=== PATIENT | male | born 1950 | race Caucasian/White ===

== ENCOUNTER 2024-11-01 16:51 | Emergency (ER) | payer BC, SELFPAY ==
[2024-11-01 16:56] VITALS: BP 143/86
[2024-11-01 17:29] LABS: Hematocrit 43.6 % (39.0-52.0); Hemoglobin 15.1 g/dL (13.0-18.0); Mean Corp Hgb Conc. 34.6 g/dL (33.0-37.0); Mean Corpuscular Volume 95.2 fL (80.0-94.0); Nucleated Red Blood Cells % 0 % (-); Platelet Count 172 10^3/uL (130-400); Red Cell Dist. Width 15.8 % (11.5-14.5)
[2024-11-01 17:51] LABS: Troponin I < 0.012 ng/ml
[2024-11-01 17:56] LABS: ALT (SGPT) 96 U/L (0-50); AST (SGOT) 186 U/L (17-59); Albumin 4.5 g/dl (3.5-5.0); Alkaline Phosphatase 237 U/L (38-126); Blood Urea Nitrogen 17 mg/dl (9-20); Calcium 9.0 mg/dl (8.4-10.2); Carbon Dioxide 18 mmol/L (22-30); Chloride 105 mmol/L (98-107); Glucose 124 mg/dl (70-99); Potassium 3.8 mmol/L (3.5-5.1); Sodium 139 mmol/L (135-145); Total Protein 8.1 g/dl (6.3-8.2); eGFR > 60.00
[2024-11-01 18:14] VITALS: BMI 39.3
[2024-11-01 18:18] VITALS: BP 132/85
--- NOTE | 2024-11-01 18:48 | ED.GENMED ---
History of Present Illness
General
Chief Complaint: Breathing Problem
Source: patient
Exam Limitations: none
Time Seen by Provider: 11/01/24 18:25
Nursing documentation reviewed up to this point in time: agreed with
History of Present Illness
History of Present Illness:
74-year-old male presents Emergency Department due to coughing and being unable to clear his throat. He had a similar episode in the past that was angioedema.
Past History
Past History
ED Past Medical History: HTN, Hypercholesterolemia and Other (Angioedema)
ED Past Surgical History: None
Social History
Personal:
Living: with family
Review of Systems
Review of Systems
Allergies reviewed?: Yes
All Other Systems: Not applicable
Constitutional: Reports no symptoms
EENT: Reports no symptoms
Respiratory: Reports trouble breathing
Cardiac: Reports no symptoms
ABD/GI: Reports no symptoms
: Reports no symptoms
Musculoskeletal: Reports no symptoms
Skin: Reports no symptoms
Neurological: Reports no symptoms
Endocrine: Reports no symptoms
Hematologic/Lymphatic: Reports no symptoms
Psychiatric: Reports no symptoms
Phy Exam
Physical Exam
Physical Exam:
Physical Exam
General: no apparent distress, not acutely ill
Neck: supple. no meningeal signs. normal posterior pharynx
Heart: s1/s2 regular rate and rhythm, no murmur. equal radial
pulses.
HEENT: Pupils equal round reactive to light, EOMI
Lungs: no acute respiratory distress. clear bilaterally, cough
Abdomen: normal bowel sounds. not tender. no CVAT
Neuro: alert and oriented. no focal neurological deficits cranial nerves II through XII intact
Skin: no rash
Psychiatric: well kept. interactive and cooperative
Extremities: no edema. no calf tenderness. negative homans. good distal pulses
Scores
Heart Failure Risk
Heart Failure Risk Score: Not Applicable
Course
Orders/Labs/Results
Orders:
Orders
11/01/24 17:01
Electrocardiogram (*1) Urgent
Reason for Study: Shortness of Breath
11/01/24 17:02
Electrocardiogram (*1) Urgent
Reason for Study: Shortness of Breath
EKG- Treatment ONCE
11/01/24 17:19
Complete Blood Count/With Diff Urgent
Comprehensive Metabolic Panel Urgent
Pro-BNP [NT-proBNP] Urgent
Troponin I Urgent
11/01/24 18:22
CXR2 [CR Chest - 2 Views ] Urgent
Comment:
Reason For Exam: cough short of breath
11/01/24 18:46
Diphenhydramine [Benadryl] 25 mg IV NOW STA
Famotidine [Pepcid] 20 mg IV NOW STA
Ipratropium/Albuterol Sulfate [Duoneb] 3 ml INH R NOW STA
Pantoprazole [Protonix IV] 40 mg IV NOW STA
11/01/24 19:06
COVID-19 Antigen Urgent
Source: Nasal Swab
D-Dimer Urgent
PTT Urgent
Prothrombin Time Urgent
11/01/24 20:33
Lorazepam [Ativan] 1 mg IV NOW STA
11/01/24 20:40
Ipratropium/Albuterol Sulfate [Duoneb] 3 ml .ROUTE .STK-MED ONE
11/01/24 20:43
Ipratropium/Albuterol Sulfate [Duoneb] 3 ml INH R NOW ONE
Abnormal Lab Results
11/01/24 11/01/24
17:19 19:06
RBC 4.58 L 10^6/uL
(4.70-6.10)
MCV 95.2 H fL
(80.0-94.0)
MCH 33.0 H pg
(27.0-31.0)
RDW 15.8 H %
(11.5-14.5)
Absolute Lymphs (auto) 0.8 L 10^3/uL
(1.2-3.4)
Absolute Monos (auto) 0.8 H 10^3/uL
(0.1-0.6)
Lymphocytes % 14.5 L %
(20.5-51.1)
Monocytes % 13.1 H %
(1.7-9.3)
D-Dimer 0.68 H ug/mlFEU
(0.00-0.50)
Carbon Dioxide 18 L mmol/L
(22-30)
Glucose 124 H mg/dl
(70-99)
Total Bilirubin 2.1 H mg/dl
(0.2-1.3)
AST 186 H U/L
(17-59)
ALT 96 H U/L
(0-50)
Alkaline Phosphatase 237 H U/L
(38-126)
11/01/24 17:19
11/01/24 17:19
Vital Signs
Initial and Last Documented VS:
Initial Vital Signs
Temp Pulse Resp BP Pulse Ox
98.2 F 117 18 143/86 94
11/01/24 16:56 11/01/24 16:56 11/01/24 16:56 11/01/24 16:56 11/01/24 16:56
Last Documented Vital Signs
Temp Pulse Resp BP Pulse Ox
99.3 F 105 21 138/83 94
11/01/24 18:18 11/01/24 22:45 11/01/24 22:45 11/01/24 22:00 11/01/24 22:45
MDM/Problems Addressed
Differential Diagnosis Includes:
Alcohol withdraw, bronchitis, angioedema, pneumonia, CHF
MDM/Problems Addressed:
74-year-old male with cough, possibly related to reflux versus bronchitis. Vital signs stable. Improved after albuterol and Ativan. Possible degree of alcohol withdrawal. Patient does not want stay in hospital or go to rehab. Discharge home.
Chronic conditions affecting care: HTN
Acute Exacerbation and/or Progression of Chronic Illness: HTN
*Radiology
Radiology exam reviewed: radiology read reviewed (Chest x-ray no acute findings)
*Pulse Oximetry
SaO2: 95
Oxygen Mode of Delivery: Room air
Patient hypoxic: no
*EKG
Interpreted by ED Provider?: Yes
EKG Intrepretation Date: 11/01/24
EKG Intrepretation Time: 17:12
Interpretation: abnormal
Comparison EKG: changes noted
Heart Rate: 105
Rate: tachycardiac
Rhythm: sinus arrhythmia
[place]: normal axis
Interval: normal interval
QRS Pattern: normal QRS
Ischemia: no ischemia
*Curriculum Facilitator Interpretation
Rate: normal
Interpretation: normal
Heart Rate: 94
Rhythm: sinus
*Critical Care Note
Total Time (30-74mins, 75-104mins- exclusive of procedures): Not Applicable
Data Reviewed
Review of Other/Old Records Reveals: Labs (prior cr 0.9)
Source: records
Patient Management
Social determinants of health affecting care: Living situation and Strong social support
Escalation/DeEscalation of care consider admission/obs:
admit not indicated
ED Attending Note
-
Portions of this chart may have been created with voice recognition software.� Occasional wrong word or��sound alike� substitutions may have occurred due to the inherent limitations of voice recognition software.
Discharge Plan
Departure
Patient Disposition: Home (Routine Discharge)
Date of Disposition: 11/01/24
Time of Disposition: 22:47
Patient with high blood pressure during this ER visit?: Yes
Condition: Good
Discharge Problem:
Acute bronchitis
Instructions: Acute Bronchitis, Adult (DC), BLOOD PRESSURE
Prescriptions:
New
albuterol sulfate [Ventolin HFA] 90 mcg/actuation HFA aerosol inhaler
2 puff inhalation Q6H PRN (Reason: shortness of breath or wheezing) Qty: 8.5 0RF
No Action
amlodipine-benazepril 1 EACH capsule
1 ea PO DAILY
rosuvastatin [Crestor] 10 MG tablet
10 mg PO DAILY
prednisone 10 MG tablet
10 mg PO .TAPER Qty: 30 0RF
Rx Instructions:
Take [id number], 82ewd8zwln, 81xgw5nbmw, 05iqg5zmkw.
amoxicillin-pot clavulanate 1 TABLET tablet
1 tab PO Q12 Qty: 14 0RF
Referrals:
Alvaro Chang DO [Family Provider, Internal Medicine] - Call in 1-3 days for appt
Activity Restrictions/Additional Instructions:
Return for any concerns.
Interventions
Interventions:
*Risk Screen - Suicide Last Done: 11/01/24 16:56
*General Assessment Last Done: 11/01/24 16:56
*Neglect/Abuse Screening Last Done: 11/01/24 16:56
*ED- Fall Risk Assessment Last Done: 11/01/24 18:15
*ED COVID-19 Vaccine History Last Done: 11/01/24 18:15
ED- Cardiac Assessment Last Done: 11/01/24 18:25
ED- Pulmonary Assessment Last Done: 11/01/24 18:25
Discharge Date and Time
Print Language: THAI
[2024-11-01] MEDS: DUONEB 3 ML INH ×2 (19:13→20:43)
[2024-11-01] MEDS: BENADRYL 25 MG IV (19:15)
[2024-11-01] MEDS: PEPCID 20 MG IV (19:19)
[2024-11-01 19:21] VITALS: BP 149/84
[2024-11-01 19:23] LABS: INR 1.06; PT 14.1 Sec (11.4-14.6)
[2024-11-01 19:24] LABS: APTT 27.0 Sec (23.4-35.0)
[2024-11-01 19:26] LABS: D-Dimer 0.68 ug/mlFEU (0.00-0.50)
[2024-11-01] MEDS: PROTONIX IV 40 MG IV (19:27)
[2024-11-01 19:28] LABS: COVID-19 Antigen Negative (Negative)
[2024-11-01 20:00] VITALS: BP 131/66
[2024-11-01] MEDS: ATIVAN 1 MG IV (20:44)
[2024-11-01 21:00] VITALS: BP 120/92
[2024-11-01 22:00] VITALS: BP 138/83
== END 2024-11-01 23:10 | disposition home or self-care (01) ==
LOC: EMR 16:51
PROVIDERS: Student in an Organized Health Care Education/Training Program; EMERGENCY PHYSICIAN Emergency Medicine; FAMILY PHYSICIAN Internal Medicine
DX: J20.9 Acute bronchitis, unspecified (principal); Z11.52 Encounter for screening for COVID-19; I10 Essential (primary) hypertension; E78.00 Pure hypercholesterolemia, unspecified; K21.9 Gastro-esophageal reflux disease without esophagitis; K22.70 Barrett's esophagus without dysplasia; Z88.8 Allergy status to other drugs, medicaments and biological substances
CPT/HCPCS: 99285; 96374; 96375 ×3; 94640 ×2; 71046; 80053; 83880; 84484; 85025; 85379; 85610; 85730; 87811; 93005

== ENCOUNTER 2025-03-21 20:30 | Emergency (ER) | payer BC, SELFPAY ==
[2025-03-21 20:31] VITALS: BP 143/96
[2025-03-21 20:54] VITALS: BP 137/83
[2025-03-21 21:00] VITALS: BP 143/74
[2025-03-21] MEDS: DUONEB 3 ML INH (21:45)
--- NOTE | 2025-03-21 21:54 | ED.GENMED ---
History of Present Illness
General
Chief Complaint: Breathing Problem
Source: patient and spouse
Exam Limitations: none
Time Seen by Provider: 03/21/25 21:23
Nursing documentation reviewed up to this point in time: agreed with
History of Present Illness
History of Present Illness:
75-year-old male hypertension alcoholism drinks every day comes in states he feels some fullness in his throat and cough that he gets either from alcohol and/or angioedema previously on an SHIRLEY inhibitor not currently on 1, also states he like to get
into alcohol rehab, had 3 drinks tonight, states he thinks he needs a neb to help him states he does not get shaky if he wants does not drink for a few days though his states there is never a few days that he does not drink, he can drink a
bottle of vodka a day
Past History
Past History
ED Past Medical History: HTN, Hypercholesterolemia and Other (Angioedema)
ED Past Surgical History: None
Social History
Personal:
Living: with family
Phy Exam
Physical Exam
Physical Exam:
Physical Exam
General: Intoxicated male no acute
Neck: Posterior pharynx is clear clear voice no lip swelling no tongue
Heart: s1/s2 regular rate and rhythm, no murmur. equal radial pulses.
Lungs: No wheeze
Abdomen: Not tender
Neuro: alert and oriented. no focal neurological deficits no tremor
Skin: no rash
Psychiatric: well kept. interactive and cooperative
Extremities: no edema.
Scores
Heart Failure Risk
Heart Failure Risk Score: Not Applicable
Course
Orders/Labs/Results
Orders:
Orders
03/21/25 21:13
Electrocardiogram (*1) Urgent
Reason for Study: Shortness of Breath
EKG- Treatment ONCE
03/21/25 21:35
Warm Handoff Consult ONCE
Patient agreeable to Warm Hand off: Yes
Ipratropium/Albuterol Sulfate [Duoneb] 3 ml INH R NOW STA
03/21/25 21:43
Alcohol Urgent
Complete Blood Count/With Diff Urgent
Comprehensive Metabolic Panel Urgent
03/21/25 22:53
Benzocaine/Menthol [Anesthetic Lozenge] 1 lozenge PO NOW STA
Benzonatate [Tessalon Perles] 200 mg PO NOW STA
Abnormal Lab Results
03/21/25
21:43
RBC 4.40 L 10^6/uL
(4.70-6.10)
MCV 96.4 H fL
(80.0-94.0)
MCH 32.5 H pg
(27.0-31.0)
RDW 15.4 H %
(11.5-14.5)
Absolute Monos (auto) 0.8 H 10^3/uL
(0.1-0.6)
Monocytes % 14.4 H %
(1.7-9.3)
Glucose 111 H mg/dl
(70-99)
AST 103 H U/L
(17-59)
ALT 61 H U/L
(0-50)
Alkaline Phosphatase 129 H U/L
(38-126)
03/21/25 21:43
03/21/25 21:43
Vital Signs
Initial and Last Documented VS:
Initial Vital Signs
Temp Pulse Resp BP Pulse Ox
97.7 F 91 20 143/96 96
03/21/25 20:31 03/21/25 20:31 03/21/25 20:31 03/21/25 20:31 03/21/25 20:31
Last Documented Vital Signs
Temp Pulse Resp BP Pulse Ox
97.7 F 91 20 143/96 96
03/21/25 20:31 03/21/25 20:31 03/21/25 20:31 03/21/25 20:31 03/21/25 21:56
MDM/Problems Addressed
Differential Diagnosis Includes:
Alcoholism, sleep apnea, no signs of angioedema
MDM/Problems Addressed:
Alcoholism, recurrent chronic cough
Chronic conditions affecting care: HTN and Other (Alcoholism)
Acute Exacerbation and/or Progression of Chronic Illness: HTN and Other (Alcoholism)
*Pulse Oximetry
SaO2: 96
Oxygen Mode of Delivery: Room air
Patient hypoxic: no
*EKG
Interpreted by ED Provider?: Yes
Interpretation: normal
Comparison EKG: no comparison EKG present
Heart Rate: 72
Rate: normal
Rhythm: sinus
Ischemia: non-specific ST changes
*Seed Core Operator Interpretation
Rate: normal
Interpretation: normal
Heart Rate: 72
Rhythm: sinus
*Critical Care Note
Total Time (30-74mins, 75-104mins- exclusive of procedures): Not Applicable
Update Note
Update Note:
Update patient states he would like to go to alcohol rehab, reviewed with warm handoff, fax clinical no signs of acute withdrawal at this time although he did just have some drinks a few hours ago, do not believe this is angioedema, or pneumonia
10:45 PM update patient appears well has a cough, states he has reflux sees Dr. Naylor, he is on a PPI this is main issue now he is intoxicated, I did review my conversation with warm handoff, patient is okay following up as an outpatient he would
like to get his cough better will try Tessalon and Cepacol tells me he drinks because it is the only thing that makes him not cough
ED Attending Note
-
Portions of this chart may have been created with voice recognition software.� Occasional wrong word or��sound alike� substitutions may have occurred due to the inherent limitations of voice recognition software.
Discharge Plan
Departure
Patient Disposition: Home (Routine Discharge)
Date of Disposition: 03/21/25
Time of Disposition: 23:23
Patient with high blood pressure during this ER visit?: No
Condition: Good
Discharge Problem:
Alcoh dep NEC/NOS, unspec
Instructions: Cough in adults, Alcohol use disorder - ED (DC)
Prescriptions:
New
Cepacol Sore Throat (rajesh-men) 15-2.6 mg lozenge
1 kristina mucous membrane Q2H PRN (Reason: sore throat) Qty: 16 2RF
benzonatate 200 mg capsule
200 mg PO TID PRN (Reason: Cough) Qty: 30 2RF
No Action
amlodipine-benazepril 1 EACH capsule
1 ea PO DAILY
rosuvastatin [Crestor] 10 MG tablet
10 mg PO DAILY
prednisone 10 MG tablet
10 mg PO .TAPER Qty: 30 0RF
Rx Instructions:
Take 69hgs4afkp, 56epe4bbgd, 36hyl7vojd, 84lkx0zsba.
amoxicillin-pot clavulanate 1 TABLET tablet
1 tab PO Q12 Qty: 14 0RF
albuterol sulfate [Ventolin HFA] 90 mcg/actuation HFA aerosol inhaler
2 puff inhalation Q6H PRN (Reason: shortness of breath or wheezing) Qty: 8.5 0RF
Referrals:
Alvaro Chang I., DO [Family Provider, Internal Medicine]
Activity Restrictions/Additional Instructions:
Expect a call from [facility] to assist you in getting into rehab for alcoholism
Interventions
Interventions:
*Risk Screen - Suicide Last Done: 03/21/25 20:31
*General Assessment Last Done: 03/21/25 20:59
*Neglect/Abuse Screening Last Done: 03/21/25 20:31
ED- Cardiac Assessment Last Done: 03/21/25 20:59
ED- Pulmonary Assessment Last Done: 03/21/25 20:59
Discharge Date and Time
Print Language: TELUGU
[2025-03-21 22:00] VITALS: BP 128/75
[2025-03-21 22:10] LABS: Hematocrit 42.4 % (39.0-52.0); Hemoglobin 14.3 g/dL (13.0-18.0); Mean Corp Hgb Conc. 33.7 g/dL (33.0-37.0); Mean Corpuscular Volume 96.4 fL (80.0-94.0); Nucleated Red Blood Cells % 0 % (-); Platelet Count 221 10^3/uL (130-400); Red Cell Dist. Width 15.4 % (11.5-14.5)
[2025-03-21 22:25] LABS: ALT (SGPT) 61 U/L (0-50); AST (SGOT) 103 U/L (17-59); Albumin 4.0 g/dl (3.5-5.0); Alkaline Phosphatase 129 U/L (38-126); Blood Urea Nitrogen 13 mg/dl (9-20); Calcium 8.9 mg/dl (8.4-10.2); Carbon Dioxide 26 mmol/L (22-30); Chloride 105 mmol/L (98-107); Glucose 111 mg/dl (70-99); Potassium 4.1 mmol/L (3.5-5.1); Sodium 139 mmol/L (135-145); Total Protein 7.9 g/dl (6.3-8.2); eGFR > 60.00
[2025-03-21 23:00] VITALS: BP 137/92
[2025-03-21] MEDS: TESSALON PERLES 200 MG PO (23:24)
[2025-03-21] MEDS: ANESTHETIC LOZENGE 1 LOZENGE PO (23:24)
== END 2025-03-21 23:47 | disposition home or self-care (01) ==
LOC: EMR 20:30
PROVIDERS: EMERGENCY PHYSICIAN Emergency Medicine; FAMILY PHYSICIAN Internal Medicine
DX: R05.3 Chronic cough (principal); F10.229 Alcohol dependence with intoxication, unspecified; K21.9 Gastro-esophageal reflux disease without esophagitis; I10 Essential (primary) hypertension; E78.00 Pure hypercholesterolemia, unspecified; T78.3XXA Angioneurotic edema, initial encounter; K22.70 Barrett's esophagus without dysplasia; Z88.8 Allergy status to other drugs, medicaments and biological substances
CPT/HCPCS: 99283; 94640; 80053; 82077; 85025; 93005

== ENCOUNTER 2025-04-10 13:02 | Emergency (ER) | payer BC, SELFPAY ==
[2025-04-10 13:07] VITALS: BP 137/94
[2025-04-10 13:36] LABS: Hematocrit 46.8 % (39.0-52.0); Hemoglobin 15.6 g/dL (13.0-18.0); Mean Corp Hgb Conc. 33.3 g/dL (33.0-37.0); Mean Corpuscular Volume 96.3 fL (80.0-94.0); Nucleated Red Blood Cells % 0 % (-); Platelet Count 177 10^3/uL (130-400); Red Cell Dist. Width 15.2 % (11.5-14.5)
[2025-04-10 13:57] LABS: ALT (SGPT) 98 U/L (0-50); AST (SGOT) 198 U/L (17-59); Albumin 4.4 g/dl (3.5-5.0); Alkaline Phosphatase 231 U/L (38-126); Blood Urea Nitrogen 14 mg/dl (9-20); Calcium 8.6 mg/dl (8.4-10.2); Carbon Dioxide 24 mmol/L (22-30); Chloride 104 mmol/L (98-107); Glucose 89 mg/dl (70-99); Potassium 4.4 mmol/L (3.5-5.1); Sodium 141 mmol/L (135-145); Total Protein 8.2 g/dl (6.3-8.2); eGFR > 60.00
--- NOTE | 2025-04-10 14:30 | ED.GENMED ---
History of Present Illness
General
Chief Complaint: Alcohol Problem
Source: patient
Exam Limitations: none
Time Seen by Provider: 04/10/25 14:19
History of Present Illness
History of Present Illness:
75-year-old male presents with request for help for his alcohol abuse. He states he has been drinking vodka he is now up to a bottle a day and he cannot seem to break free of his habit. He has no complaints of chest pain or shortness of breath.
He notes a chronic off-balance sensation which is not new. Last beverage was prior to arrival. He had already been in contact with [facility] who is working on placement.
Past History
Past History
ED Past Medical History: HTN, Hypercholesterolemia and Other (Angioedema)
ED Past Surgical History: None
Social History
Personal:
Living: with family
Phy Exam
Physical Exam
Physical Exam:
General: Well-appearing male no acute respiratory distress
HEENT: Normal cephalic atraumatic
Heart: Regular rate and rhythm lungs: Clear no wheeze
Abdomen is soft nontender
Extremities: No cyanosis
Scores
Withdrawal Assessment of Alcohol
Withdrawal Assessment Completed?: No
Course
Orders/Labs/Results
Orders:
Orders
04/10/25 13:20
Complete Blood Count/With Diff Urgent
Comprehensive Metabolic Panel Urgent
04/10/25 15:45
Lorazepam [Ativan] 1 mg PO NOW STA
04/10/25 16:37
Lorazepam [Ativan] 1 mg PO NOW STA
Abnormal Lab Results
04/10/25
13:20
MCV 96.3 H fL
(80.0-94.0)
MCH 32.1 H pg
(27.0-31.0)
RDW 15.2 H %
(11.5-14.5)
Neutrophils % 41.4 L %
(42.2-75.2)
Total Bilirubin 1.9 H mg/dl
(0.2-1.3)
AST 198 H U/L
(17-59)
ALT 98 H U/L
(0-50)
Alkaline Phosphatase 231 H U/L
(38-126)
04/10/25 13:20
04/10/25 13:20
Vital Signs
Initial and Last Documented VS:
Initial Vital Signs
Temp Pulse Resp Pulse Ox
98.4 F 96 19 91
04/10/25 13:04 04/10/25 13:04 04/10/25 13:04 04/10/25 13:04
Last Documented Vital Signs
Temp Pulse Resp BP Pulse Ox
98.4 F 98 20 137/94 95
04/10/25 13:04 04/10/25 16:00 04/10/25 16:00 04/10/25 13:07 04/10/25 15:58
MDM/Problems Addressed
Differential Diagnosis Includes:
Patient here for alcohol abuse. He admits to drinking a bottle of vodka a day. No other complaints. Last drink was today. Working on placement into rehab and detox facility. Vital signs are stable
*Pulse Oximetry
SaO2: 91
Patient hypoxic: no
*Critical Care Note
Total Time (30-74mins, 75-104mins- exclusive of procedures): Not Applicable
Update Note
Update Note:
Patient has a bed. He will be picked up at 5 PM. He did require Ativan here to help his anxiety. Vital signs remained stable
ED Attending Note
-
Portions of this chart may have been created with voice recognition software.� Occasional wrong word or��sound alike� substitutions may have occurred due to the inherent limitations of voice recognition software.
Discharge Plan
Departure
Patient Disposition: Acute Rehab Facility
Date of Disposition: 04/10/25
Time of Disposition: 16:38
Patient with high blood pressure during this ER visit?: No
Discharge Problem:
Alcoh dep NEC/NOS, unspec
Prescriptions:
No Action
amlodipine-benazepril 1 EACH capsule
1 ea PO DAILY
rosuvastatin [Crestor] 10 MG tablet
10 mg PO DAILY
prednisone 10 MG tablet
10 mg PO .TAPER Qty: 30 0RF
Rx Instructions:
Take 34ifj3bsmc, 09ait9amyj, 65rbe7ztmg, 00mod6ukjq.
amoxicillin-pot clavulanate 1 TABLET tablet
1 tab PO Q12 Qty: 14 0RF
albuterol sulfate [Ventolin HFA] 90 mcg/actuation HFA aerosol inhaler
2 puff inhalation Q6H PRN (Reason: shortness of breath or wheezing) Qty: 8.5 0RF
Cepacol Sore Throat (rajesh-men) 15-2.6 mg lozenge
1 kristina mucous membrane Q2H PRN (Reason: sore throat) Qty: 16 2RF
benzonatate 200 mg capsule
200 mg PO TID PRN (Reason: Cough) Qty: 30 2RF
Referrals:
Alvaro Chang I., DO [Family Provider, Internal Medicine]
Activity Restrictions/Additional Instructions:
Seek treatment as planned at the rehab and detox facility
Interventions
Interventions:
*General Assessment Last Done: 04/10/25 13:06
*Neglect/Abuse Screening Last Done: 04/10/25 13:07
*ED COVID-19 Vaccine History Last Done: 04/10/25 13:06
*ED Influenza Vaccine History Last Done: 04/10/25 13:[address]
[facility] Fall Risk Assessment Tool Last Done: 04/10/25 16:03
*Risk Screen - Suicide (C-SSRS) Last Done: 04/10/25 13:07
ED- Neurological Assessment Last Done: 04/10/25 15:23
ED-Psychological Assessment Last Done: 04/10/25 15:23
Discharge Date and Time
Print Language: [id number]
[2025-04-10] MEDS: ATIVAN 1 MG PO ×2 (15:54→18:13)
== END 2025-04-10 19:35 ==
LOC: EMR 13:02
PROVIDERS: Emergency Medicine; EMERGENCY PHYSICIAN Student in an Organized Health Care Education/Training Program; FAMILY PHYSICIAN Internal Medicine
DX: F10.20 Alcohol dependence, uncomplicated (principal); E78.00 Pure hypercholesterolemia, unspecified; I10 Essential (primary) hypertension
CPT/HCPCS: 99285; 80053; 85025